=== PATIENT | male | born 1975 | race Caucasian/White ===

== ENCOUNTER 2017-04-25 20:28 | Inpatient (IN) ==
[2017-04-25 22:02] LABS: Basophils # 0.1 K/mcL (0.0-0.2); Basophils % 0.5 %; Eosinophils # 0.1 K/mcL (0.0-0.6); Eosinophils % 0.5 %; Hematocrit 44.3 % (37.5-50.1); Hemoglobin 14.8 g/dL (12.9-16.9); Immature Granulocytes % 0.5 % (0-4); Lymphocytes # 1.4 K/mcL (0.6-4.6); Lymphocytes % 10.5 %; Mean Corpuscular HGB Conc 33.4 g/dL (31.6-35.5); Mean Corpuscular Hemoglobin 30.4 pg (28.0-33.3); Mean Platelet Volume 9.2 fL (9.4-12.4); Monocytes # 0.7 K/mcL (0.0-1.3); Monocytes % 5.5 %; Neutrophils # 10.6 K/mcL (1.6-8.9); Platelet Count 206 K/mcL (140-400); Red Blood Count 4.87 M/mcL (4.19-5.50); Red Cell Distribution Width 12.9 % (11.5-14.5); Segmented Neutrophils % 82.5 %
[2017-04-25] MEDS ORDERED: Ondansetron 4 MG/2 ML VIAL IVP ONE (22:09)
[2017-04-25] MEDS ORDERED: Ketorolac 15 MG/ML VIAL IVP ONE (22:10)
[2017-04-25] MEDS ORDERED: 0.9 % Sodium Chloride 1,000 ML ONE (22:15)
[2017-04-25 22:17] LABS: Albumin 4.2 g/dL (3.5-5.7); Albumin/Globulin Ratio 1.5 (1.1-2.2); Bilirubin,Direct 0.1 mg/dL (0.0-0.2); Bilirubin,Indirect 0.3 mg/dL (0.0-1.2); Bilirubin,Total 0.4 mg/dL (0.3-1.0); Calcium 9.1 mg/dL (8.6-10.3); Globulin 2.8 g/dL (2.4-3.5)
[2017-04-25] MEDS ORDERED: *HR* HYDROcodone/Acet 5/325 mg TABLET PO ONE (22:32)
--- NOTE | 2017-04-25 22:37 | Emergency Department Note ---
Disposition Clinical Impression: Nephrolithiasis Acute renal failure Qualifiers: Acute renal failure type: unspecified Qualified Code(s): N17.9 - Acute kidney failure, unspecified Disposition: Admitted As Inpatient Condition: Good Instructions: Flank Pain (ED) Reasons to Return/Additional Instructions: admitted as inpatient. Follow up with urologist and PCP after discharge from hospital. Referrals: Gerson Arguello DO [Primary Care Provider] - Josef Redding MD [Family Provider] - Forms: ED Satisfaction Letter, Work/School Release Time of Disposition: 23:42 Abdominal Pain HPI - General Chief Complaint: ED Abdominal Pain Stated Complaint: "Right Flank Pain/Abd Pain" Time Seen by Provider: 04/25/17 21:49 Source: patient Mode of arrival: ambulatory Limitations: no limitations Nursing Notes Reviewed: Yes Vital Signs Reviewed: Yes - History of Present Illness HPI Narrative: 41 year old male presents to ED with a complaint of R flank pain, RLQ pain. He states it was sudden onset 3 hours previously after eating dinner. Describes it as sharp and aching at the same time. He has never had this before. Denies any symptoms of fevers, chills, changes to bowel movement, vomiting, dysuria but does admit to inability to urinate since onset as well as nausea. He notably states that he has been told that he only has one kidney. No exacerbating or relieving symptoms. His pain has been 10/10 and constant. Pt Subjective Complaint: abdominal pain, flank pain Onset (ago): hour(s) Consistency: constant Location: RLQ, R flank Pain Severity: severe Pain Scale: 10 Quality: aching, sharp Radiation: RLQ Worsens with: nothing Associated symptoms: Reports: nausea. Denies: vomiting, diarrhea, fever, chills , constipation, dysuria, hematuria Treatments prior to arrival: none - Related Data Allergies Allergy/AdvReac Type Severity Reaction Status Date / Time No Known Allergies Allergy Verified 04/25/17 20:58 All systems ED: reviewed and negative except as stated. Review of Systems: As Per HPI Abdominal Pain PMH - Past Medical History Medical history: Reports: hypertension, other Male Surgical History: Reports: cholecystectomy, herniorrhaphy, Tonsillectomy Psychiatric history: Reports: no psych history - Social History Smoking status: Never smoker Alcohol use: Reports: rarely Drug use: Reports: none Physical Exam - General Limitations: no limitations General appearance: alert - Head Head exam: atraumatic, normocephalic - Chest Chest inspection: Present: normal inspection, symmetric chest wall rise - Respiratory Respiratory exam: Present: normal lung sounds bilaterally - Cardiovascular Cardiovascular exam: Present: regular rate, normal rhythm, normal heart sounds - Abdominal Exam Abdominal exam: Present: soft, tenderness, diminished bowel sounds. Absent: distention, guarding, rebound, rigidity, Edwards's sign, tenderness at McBurney' s Point Abdominal tenderness: Present: RLQ, suprapubic - Back Exam Back exam: Present: tenderness, CVA tenderness (R) - Neurological Exam Neurological exam: Present: alert, oriented X3 - Psychiatric Psychiatric exam: Present: normal affect, normal mood - Skin Skin exam: Present: warm, dry, intact, normal color Course Course Narrative: 41 year old male with right flank and RLQ abdominal pain. We will obtain labs of cbc, bmp, hepatic panel, lipase, UA, as well as abdominal CT. - Reevaluation(s) Reevaluation #1: Discussed positive CT scan, 3mm ureteral stone in UVJ with field operations manager urologist, Dr. Truong. He will see him tomorrow and instructed to strain all urine. Patient reexamined and states pain much improved after norco. Time: 23:30 Vital Signs Temperature 98.0 F 04/25/17 20:39 Pulse Rate 64 04/25/17 20:39 Respiratory Rate 18 04/25/17 20:39 Blood Pressure 186/95 04/25/17 20:39 O2 Sat by Pulse Oximetry 96 04/25/17 20:39 Temperature 98.0 F 04/25/17 20:39 Pulse Rate 64 04/25/17 20:39 Respiratory Rate 18 04/25/17 20:39 Blood Pressure 186/95 04/25/17 20:39 O2 Sat by Pulse Oximetry 96 04/25/17 20:39 Oxygen Delivery Oxygen Delivery Room Air Abdominal Pain - MDM Narrative Medical decision making narrative: 41 year old male for abdominal pain with right flank involvement. CT scan positive for 3mm stone in UVJ on right with solitary kidney. Labs significant for mild WBC count as well as elevated BUN/Cr. No previous to labs to compare to. UA not obtained as patient has been unable to void. Pain controlled with [place]. Discussed case with field operations manager urologist, Dr. Truong, will see tomorrow morning. Instructed to strain all urine for stone. Discussed with hospitalist, Dr. Acosta, who agrees with admission. - Lab Data Result diagrams: 04/25/17 21:53 04/25/17 21:53 Lab Results 04/25/17 04/25/17 Range/Units 21:53 21:53 WBC 12.8 H (4.3-11.1) K/mcL RBC 4.87 (4.19-5.50) M/mcL Hgb 14.8 (12.9-16.9) g/dL Hct 44.3 (37.5-50.1) % MCV 91.0 (83.0-100.0) fL MCH 30.4 (28.0-33.3) pg MCHC 33.4 (31.6-35.5) g/dL RDW 12.9 (11.5-14.5) % Plt Count 206 (140-400) K/mcL MPV 9.2 L (9.4-12.4) fL Immature Gran % 0.5 (0-4) % Seg Neutrophils % 82.5 % Lymphocytes % 10.5 % Monocytes % 5.5 % Eosinophils % 0.5 % Basophils % 0.5 % Neutrophils # 10.6 H (1.6-8.9) K/mcL Lymphocytes # 1.4 (0.6-4.6) K/mcL Monocytes # 0.7 (0.0-1.3) K/mcL Eosinophils # 0.1 (0.0-0.6) K/mcL Basophils # 0.1 (0.0-0.2) K/mcL Sodium 139 (136-145) mEq/L Potassium 4.0 (3.5-5.1) mEq/L Chloride 109 H (98-107) mEq/L Carbon Dioxide 23 (23-29) mEq/L BUN 21 H (6-20) mg/dL Creatinine 1.91 H (0.70-1.30) mg/dL Est GFR ( Amer) 47 L (> 60) Est GFR (Non-Af Amer) 39 L (> 60) BUN/Creatinine Ratio 11 (6-26) Glucose 124 H (70-105) mg/dL Calculated Osmolality 292 (280-300) Calcium 9.1 (8.6-10.3) mg/dL Total Bilirubin 0.4 (0.3-1.0) mg/dL Direct Bilirubin 0.1 (0.0-0.2) mg/dL Indirect Bilirubin 0.3 (0.0-1.2) mg/dL AST 19 (13-39) Units/L ALT 28 (7-52) Units/L Alkaline Phosphatase 56 (34-104) Units/L Serum Total Protein 7.0 (6.4-8.9) g/dL Albumin 4.2 (3.5-5.7) g/dL Globulin 2.8 (2.4-3.5) g/dL Albumin/Globulin Ratio 1.5 (1.1-2.2) Amylase 27 L (29-103) Units/L Lipase 11 (11-82) Units/L Attestation Statement - Attestation Attestation: I examined this patient and my medical decision-making was reviewed with the Resident Physician. I agree with the documented findings, disposition and treatment plan as described except to the extent set forth below. 3 mm UVJ stone with hydroureter and hydronephrosis in patient with a solitary kidney. Creatinine 1.9, no previous studies for comparison. Essentially pain- free after treatment in ED. Discussed with Dr. Truong with urology who wants the patient with the hospitalist. Accepted by the hospitalist for admission.
[2017-04-25] MEDS ORDERED: 0.9 % Sodium Chloride 1,000 ML IVC SCH (23:30)
--- NOTE | 2017-04-26 03:53 | Internal Med History&Physical ---
Date of Encounter: 04/26/17 Time of Encounter: 03:48 Assessment and Plan (1) Hydronephrosis with urinary obstruction due to ureteral calculus Current visit: Yes Status: Acute Urology consulted Pain controlled with current regimen NPO Start Flomax Code(s): N13.2 - Hydronephrosis with renal and ureteral calculous obstruction (2) Solitary kidney Current visit: Yes Status: Acute [place] one functional kidney. Avoid nephrotoxic agents Stop Toradol Code(s): Q60.0 - Renal agenesis, unilateral (3) Acute renal failure Current visit: Yes Status: Acute Secondary to obstruction Nephrology consulted Avoid all nephrotoxic medications Acute renal failure type: unspecified Qualified Code(s): N17.9 - Acute kidney failure, unspecified (4) DILLON (obstructive sleep apnea) Current visit: No Status: Chronic Code(s): G47.33 - Obstructive sleep apnea (adult) (pediatric) Internal Medicine - H&P: HPI Chief complaint: right flank an RLQ pain Admitted From: Emergency Dept Plans for Post Hospital Care: Home History of present illness: 41 year old man presents to the ED with a complaint of 10/10 constant R flank pain and RLQ pain with no No exacerbating or relieving symptoms. His symptoms began 3 hours before coming to the ER after eating dinner. His pain is achy and sharp He denies fevers, chills, vomiting, dysuria but does admit to inability to urinate since onset as well as nausea. He has a hx of a solitary kidney. The CT scan positive for 3mm stone in UVJ on right with a solitary right kidney. He' s unable to void to check a UA at this time. Pain controlled with [place]. Dr. Talamantes called by the ER and he will see tomorrow morning. Instructed to strain all urine for stone. Past Med Surg Social Fam HX - Past Medical History Medical history: hypertension Psychiatric history: no psych history - Past Surgical History Surgical History: cholecystectomy - Social History Smoking Status: Never smoker Smokeless Tobacco Status: No Alcohol use: rarely Drug use: none - Family History Mother Living Status: Still Living Hx Family Cardiac Disorders: Yes (HTN, HLD) Hx Family Respiratory Disorders: No Hx Family Cancer: Yes (Skin) Hx Family Reproductive Disorders: Yes Father Hx Family Cardiac Disorders: Yes (HTN, HLD) Internal Medicine - H&P: Meds Loratadine [Allergy Relief] 10 mg PO DAILY 04/26/17 [History] Metoprolol [Lopressor] 25 mg PO DAILY 04/26/17 [History] 3 Allergy/AdvReac Type Severity Reaction Status Date / Time No Known Allergies Allergy Verified 04/25/17 20:58 All Systems PM: A 10-system review of systems was performed and is negative for pertinent findings except as documented above in the HPI. - Constitutional Constitutional: no anorexia, no chills, no excessive sweating, no fever(s), no falls, no lethargy, no weight gain - EENT Eyes: no blurry vision, no decreased night vision, no itchy eyes, no photophobia , no tunnel vision Ears: no tinnitus Nose, mouth and throat: no bleeding gums, no dental pain, no dysphagia, no mouth pain, no nasal congestion, no nasal discharge, no odynophagia, no sinus pain, no sore throat - Cardiovascular Cardiovascular ROS IM: no chest pain, no claudication, no diaphoresis, no irregular heart rhythm - Respiratory Respiratory: no cough, no dyspnea, no hemoptysis, no wheezing, no snoring, no stridor - Gastrointestinal Gastrointestinal: abdominal pain, no dysphagia, no hematemesis, no hematochezia , no odynophagia - Genitourinary Genitourinary ROS male: flank pain, no dysuria, no hematuria, no penile discharge - Neurological Neurological ROS: no abnormal speech, no disequilibrium, no restless legs, no vertigo - Endocrine Endocrine IM: no as per HPI, no deeping of the voice, no flushing, no polyuria - Allergic/Immunologic Allergic/Immunologic: no tongue swelling, no wheezing, no lip swelling - Constitutional Vitals: Temp Pulse Resp BP Pulse Ox 98.1 F 58 14 144/84 94 04/26/17 01:04 04/26/17 01:04 04/26/17 01:04 04/26/17 01:04 04/26/17 01:04 General appearance: Present: mild distress, A&O X 3, pleasant, answers questions appropriately - Head Head exam: Present: atraumatic, normocephalic - Eye Eye exam: Present: PERRL, conjuntiva pink, sclera anicteric Pupils: Present: PERRL - Neck Neck exam general surgery: Present: supple, trachea midline. Absent: lymphadenopathy - Respiratory Respiratory exam: Present: CTAB. Absent: accessory muscle use, rales, rhonchi, wheezes - Cardiovascular Cardiovascular exam: Present: RRR, +S1, +S2. Absent: diastolic murmur, gallop, rubs, systolic murmur - GI/Abdominal GI/Abdominal exam: Present: normal bowel sounds, soft, no peritoneal signs. Absent: distended, tenderness - exam: Absent: scrotal swelling, urethral discharge - Extremities Exam Extremities exam: Present: warm, radial pulses palpable and symmetrical. Absent : calf tenderness, cyanotic, pedal edema - Neurological Exam Neurological exam: Present: CN II-XII intact, oriented X3, no focal deficits. Absent: pronater drift, facial droop, speech deficit - Skin Skin exam: Present: dry, intact Internal Med - H&P Results - Labs CBC & Chem 7: 04/25/17 21:53 04/25/17 21:53
[2017-04-26 06:24] LABS: Basophils % 0.3 %; Eosinophils # 0.1 K/mcL (0.0-0.6); Eosinophils % 0.8 %; Hematocrit 41.3 % (37.5-50.1); Hemoglobin 13.4 g/dL (12.9-16.9); Immature Granulocytes % 0.4 % (0-4); Lymphocytes # 1.5 K/mcL (0.6-4.6); Lymphocytes % 15.1 %; Mean Corpuscular HGB Conc 32.4 g/dL (31.6-35.5); Mean Corpuscular Hemoglobin 29.8 pg (28.0-33.3); Mean Platelet Volume 9.4 fL (9.4-12.4); Monocytes # 0.8 K/mcL (0.0-1.3); Monocytes % 8.3 %; Neutrophils # 7.3 K/mcL (1.6-8.9); Platelet Count 179 K/mcL (140-400); Red Blood Count 4.49 M/mcL (4.19-5.50); Red Cell Distribution Width 13.1 % (11.5-14.5); Segmented Neutrophils % 75.1 %
[2017-04-26 07:00] LABS: Calcium 8.7 mg/dL (8.6-10.3)
[2017-04-26] MEDS ORDERED: Lidocaine -MPF 2% 2 ML VIAL ONE (07:20)
[2017-04-26] MEDS ORDERED: *HR* Propofol 200 MG/20 ML VIAL IVP ONE (07:20)
[2017-04-26] MEDS ORDERED: *HR* FentaNYL (PF) 100 MCG/2 ML VIAL ONE (07:20)
--- NOTE | 2017-04-26 07:28 | Urology - Consult Note ---
Date of Encounter: 04/26/17 Time of Encounter: 07:26 - Assessment and Plan (1) Acute renal failure Current Visit: Yes Status: Acute Assessment and plan: from obstruction in solitary kidney. now needs urgent stone extraction and stent this AM bc Cr increased from 1.9 to 3 and he is anuric. Qualifiers: Acute renal failure type: unspecified Qualified Code(s): N17.9 - Acute kidney failure, unspecified (2) Hydronephrosis with urinary obstruction due to ureteral calculus Current Visit: Yes Status: Acute Assessment and plan: stone extraction and stent this AM. pt understands urgency of situation bc no UO and Cr increased. need to proceed to prevent renal damage/failure. risk discussed including injury to solitary kidney and ureter, stent complications, reaction to dye, stricture. Urology CN:HPI Consult date: 04/26/17 Reason for consult Urology: Hydronephrosis History of present illness: pt admitted overnight with a 3 mm UVJ stone in a solitary kidney. now not making any urine. Cr increased from 1.9 to 2.97. no fever. no hx stones. Past Med Surg Social Fam HX - Past Medical History Medical history: hypertension Psychiatric history: no psych history - Past Surgical History Surgical History: cholecystectomy - Social History Smoking Status: Never smoker Smokeless Tobacco Status: No Alcohol use: rarely Drug use: none - Family History Mother Living Status: Still Living Hx Family Cardiac Disorders: Yes (HTN, HLD) Hx Family Respiratory Disorders: No Hx Family Cancer: Yes (Skin) Hx Family Reproductive Disorders: Yes Father Hx Family Cardiac Disorders: Yes (HTN, HLD) Medications and Allergies Loratadine [Allergy Relief] 10 mg PO DAILY 04/26/17 [History] Metoprolol Succinate [Toprol Xl] 25 mg PO DAILY 04/26/17 [History] 3 Allergy/AdvReac Type Severity Reaction Status Date / Time No Known Allergies Allergy Verified 04/25/17 20:58 Review of Systems - Constitutional no chills, no fever(s), no malaise - EENT Nose, mouth and throat: no dizziness - Cardiovascular no chest pain - Respiratory no cough - Gastrointestinal abdominal pain, nausea - Genitourinary flank pain - Musculoskeletal back pain - Integumentary no erythema - Neurological as per HPI, no confusion - Psychiatric no anxiety - Hematologic/Lymphatic no easy bleeding - Allergic/Immunologic no throat swelling Exam Initial Vital Signs Temp Pulse Resp BP Pulse Ox 98.0 F 64 18 186/95 96 04/25/17 20:39 04/25/17 20:39 04/25/17 20:39 04/25/17 20:39 04/25/17 20:39 - General physical appearance Present: well developed, no distress - Eyes Present: PERRL - ENT Present: normal nares - Neck Present: no masses - Respiratory Present: normal respiratory effort - Cardiovascular Cardiovascular exam IM: RRR - Abdomen Abdomen: Present: soft. Absent: masses, suprapubic tenderness - Integumentary Present: no rash. Absent: lesions, erythema - Neurologic Present: normal coordination. Absent: disoriented, confused Urology Results - Labs 04/26/17 05:11 04/26/17 05:11 Abnormal lab results Chloride 110 mEq/L (98-107) H 04/26/17 05:11 Carbon Dioxide 21 mEq/L (23-29) L 04/26/17 05:11 BUN 27 mg/dL (6-20) H 04/26/17 05:11 Creatinine 2.97 mg/dL (0.70-1.30) H 04/26/17 05:11 Est GFR ( Amer) 28 (> 60) L 04/26/17 05:11 Est GFR (Non-Af Amer) 23 (> 60) L 04/26/17 05:11 Glucose 116 mg/dL (70-105) H 04/26/17 05:11 POC Glucose 116 (58-89) H 04/26/17 05:20 Amylase 27 Units/L (29-103) L 04/25/17 21:53 All other labs normal. Consult Discharge Plan - Plan Referrals: Gerson Arguello DO [Primary Care Provider] - Josef Redding MD [Family Provider] -
--- NOTE | 2017-04-26 07:31 | Anesthesia Evaluation PreOp ---
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 History: Denies Any Significant HX Other Medical History: Renal (solitary kidney, ARF d/t kidney stone with hydronephrosis), Other (obesity) Anesthesia History: No Prior Anesthetic Complications, Past Anesthesia (zita) Alcohol Use: rarely Drug use: none Medications and Allergies Loratadine [Allergy Relief] 10 mg PO DAILY 04/26/17 [History] Metoprolol Succinate [Toprol Xl] 25 mg PO DAILY 04/26/17 [History] 3 Allergy/AdvReac Type Severity Reaction Status Date / Time No Known Allergies Allergy Verified 04/25/17 20:58 - Meds/Allergy Pre-op Review Medications Reviewed: Yes Allergies Reviewed: Yes Beta Blockers on Current Med List: No Anesthesia Results - Labs 04/26/17 05:11 04/26/17 05:11 Anesthesia Exam Selected Entries 04/26/17 05:21 Temperature 98.3 F Pulse Rate 57 Respiratory Rate 14 Blood Pressure 134/84 O2 Sat by Pulse Oximetry 94 Weight: 122kg - HEENT Pupil (Motor): EOMI Mallampati: II Teeth: Normal Oral Opening: Greater than 3 - [employer]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
[2017-04-26] MEDS ORDERED: ceFAZolin 2,000 MG in Water for inj. (sterile) 20 ML IVP ONE (08:03)
[2017-04-26] MEDS ORDERED: *HR* Promethazine 25 MG/ML VIAL IVP PRN (08:25)
[2017-04-26] MEDS ORDERED: MORPHINE SUL Oral CONC 10 MG/0.5 ML ORAL.SYG SL PRN (08:25)
[2017-04-26] MEDS ORDERED: *HR* HYDROmorphone 2 MG TABLET PO PRN (08:25)
[2017-04-26] MEDS ORDERED: Ondansetron 4 MG/2 ML VIAL ONE (08:32)
--- NOTE | 2017-04-26 08:39 | Operative Note ---
Date of procedure: 04/26/17 Pre-op diagnosis: right distal ureteral stone. solitary kidney and acute renal failure. Post-op diagnosis: same Procedure: right ureteroscopic stone extraction. right JJ stent placement Anesthesia: GETA Surgeon: Fabrice Truong Was there an health care assistant present: No Estimated blood loss (cc): 0 Specimen: stone Condition: stable Disposition: PACU Procedure in Detail: PROCEDURE IN DETAIL: Patient was taken back to the operating room, positioned supine on the operating table. Anesthesia was applied without complication. They were moved into dorsal lithotomy. Careful attention was maintained to cushion all pressure points for patient's safety. They were prepped and draped in sterile fashion. Time-out was performed with the proper patient and procedure. A 21-Nepalese rigid cystoscope was inserted into the bladder without difficulty. Systematic examination of bladder revealed no abnormalities. The ureteral orifice was cannulated using a 5-Nepalese ureteral Catheter and a zip wire was placed through the 5-Nepalese and confirmed in the renal pelvis with fluoroscopy. A semi-rigid ureteroscope was carefully inserted into the bladder and guided into the right ureteral oriface. At that point, the stone was encountered at the distal ureter and basket extracted with a 1.9 tipless basket. All stone in the ureter was removed. A 4.8 x 26 ureteral stent was placed over the zip wire under fluoroscopy without complication. The bladder was drained No string was left attached to the stent.
[2017-04-26] MEDS ORDERED: Water for inj. (sterile) 10 ML IV ONE (08:51)
[2017-04-26] MEDS ORDERED: Loratadine 10 MG TABLET PO SCH (09:00)
--- NOTE | 2017-04-26 09:04 | Anesthesia Evaluation Post Op ---
Date of Encounter: 04/26/17 Time of Encounter: 09:03 - Vital Signs Vital Signs: Vital Signs/O2 Sat, Most Current Temp Pulse Resp BP Pulse Ox 98.6 F 56 18 135/82 92 04/26/17 08:39 04/26/17 08:59 04/26/17 08:59 04/26/17 08:59 04/26/17 08:59 - Lungs Lungs: Clear Ascult./Percussion - Airway Airway: Non-obstructed - Cardiovascular Regular Rate - Mental Status Mental Status: Alert & Oriented, Answers Appropriately - Pain Pain Scale: 0 Pain Scale used: Numeric (1 - 10) - Nausea Vomiting Nausea Vomiting: Not Present - Hydration Hydration: Ice chips, Has not voided - Discharge PostOp Status: Transfer Patient to floor
[2017-04-26] MEDS ORDERED: Ondansetron 4 MG/2 ML VIAL IVP PRN (09:25)
[2017-04-26] MEDS ORDERED: *HR* OxyCODONE/APAP 5/325 TABLET PO PRN (09:25)
[2017-04-26] MEDS: Metoprolol XL (24 HR) Succ 25 MG TAB.ER.24H PO SCH (09:32)
[2017-04-26] MEDS: 0.9 % Sodium Chloride 1,000 ML IVC SCH ×2 (09:49→20:59)
[2017-04-26] MEDS ORDERED: CeFAZolin Premix DUPLEX 2,000 MG/50 ML BAG IVPB ONE (11:15)
[2017-04-26 13:59] LABS: Bilirubin,Urine Negative (Negative); Blood,Urine Large (Negative); Clarity,Urine Cloudy (Clear); Color,Urine Yellow (Yellow); Glucose,Urine (UA) Normal (Normal); Ketones,Urine Negative (Negative); Leukocyte Esterase,Urine Trace (Negative); Nitrite,Urine Negative (Negative); Protein,Urine 30 mg/dL (Neg-Trace); Specific Gravity,Urine 1.012 (1.010-1.025); Urobilinogen,Urine Normal (Normal)
[2017-04-26 14:04] LABS: Bacteria,Urine None Seen per hpf (None-Few); Hyaline Casts,Urine None Seen per lpf (None-Few); RBC,Urine TNTC per hpf (0-3); Squamous Epithelial Cell,Urine Many per lpf (None-Few)
[2017-04-26 16:39] LABS: Calcium 8.5 mg/dL (8.6-10.3); Potassium 3.7 mEq/L (3.5-5.1)
--- NOTE | 2017-04-26 17:06 | Event Note ---
Date of Encounter: 04/26/17 Time of Encounter: 09:40 41-year-old male with history of hypertension, admitted with right flank and groin colicky pain, noted to have ureteral stone. Seen and examined at bedside. Returned from OR after receiving ureteral stent. Reports no pain, fever/chills at this time. Chest- S1, S2 heard, abdomen soft and nontender, mild right CVA tenderness Acute kidney injury-likely post renal obstruction due to ureteral stone. Continue IV hydration. Status post ureteral stent placement. Continue to monitor serum creatinine closely. Avoid nephrotoxic agents. Right-sided obstructive uropathy-CT abdomen shows mild right hydronephrosis, 3 mm ureteral stone at the UV junction. Urology consulted, underwent stone extraction and right ureteral stent placement. Follow-up renal function and urine output. Patient has been almost and uric prior to stent placement. Continue pain control with when necessary oxycodone. Has received IV ciprofloxacin to prevent UTI, currently discontinued. Supportive care.
--- NOTE | 2017-04-26 17:34 | Event Note ---
Date of Encounter: 04/26/17 Time of Encounter: 17:34 Good urine output since stent placement. Creatinine has improved 2.6. Plan to observe overnight and recheck renal function in the morning. If further improvement should be able to discharge. Will need outpatient cystoscopy and stent removal
[2017-04-27 06:32] LABS: Calcium 8.7 mg/dL (8.6-10.3); Potassium 3.9 mEq/L (3.5-5.1)
--- NOTE | 2017-04-27 06:53 | Event Note ---
Date of Encounter: 04/27/17 Time of Encounter: 06:52 Cr improved to 1.7. Okay to discharge from urology standpoint. My office will call for scheduling regarding cystoscopy and stent removal next week
[2017-04-27] MEDS: 0.9 % Sodium Chloride 1,000 ML IVC SCH (07:45)
[2017-04-27] MEDS ORDERED: Loratadine 10 MG TABLET PO SCH (09:00)
[2017-04-27] MEDS: Metoprolol XL (24 HR) Succ 25 MG TAB.ER.24H PO SCH (09:06)
[2017-04-27 10:46] VITALS: BP 142/74
--- NOTE | 2017-04-27 11:32 | Discharge Summary ---
Orders not resulted at time of discharge: Pending orders 04/26/17 08:50 Calculi (stone) Analysis Routine Surgical Pathology [PTH] Routine Pathology 04/26/17 08:50 Surgical Pathology [PTH] Routine Comment: Department: Surgical Pathology Specimen: Has been collected Specimen placed in fixative?: No DATE CINTIA:: 04/26/17 Collected At:: SURGERY PRE-OP DIAGNOSIS:: right distal ureteral stone, solitary kidney POST-OP DIAGNOSIS:: same SPECIMEN & SITE: 1: right ureteral stone Date of Encounter: 04/27/17 Time of Encounter: 11:30 - Discharge Diagnosis (1) UMA (acute kidney injury) Priority: Primary Status: Acute (2) Essential hypertension Priority: Secondary Status: Chronic (3) Hydronephrosis with urinary obstruction due to ureteral calculus Priority: Primary Status: Acute (4) DILLON (obstructive sleep apnea) Priority: Secondary Status: Chronic Hospital course: Mr. Schneider is a 41 year old male with history of hypertension, who was admitted with right-sided flank and loin to groin pain. CT abdomen/pelvis done in the emergency room showed 3 mm right ureterovesical junction stone with mild right- sided hydronephrosis and hydroureter, solitary right kidney. Patient was also noted to have acute kidney injury, likely due to postrenal obstruction, associated with severe oliguria. He was started on supportive care with IV hydration, pain control. Urology was consulted, patient underwent stone extraction and right ureteral stent placement. He is noted to have significant improvement in his symptoms, urine output and serum creatinine. He is deemed stable for discharge by urology , with outpatient follow-up for stent removal. Patient is medically stable. Discharge discussed with: patient, nurse - Time Spent with Patient Total time spent providing and/or coordinating discharge services: Greater than 30 minutes (40 min) - Discharge Medications Home Medications: Loratadine [Allergy Relief] 10 mg PO DAILY 04/26/17 [History] Metoprolol Succinate [Toprol Xl] 25 mg PO DAILY 04/26/17 [History] Allergies/Adverse Reactions: 3 Allergy/AdvReac Type Severity Reaction Status Date / Time No Known Allergies Allergy Verified 04/25/17 20:58 Date of admission: 04/26/17 05:28 Primary care physician: Gerson Arguello DO Discharging clinician: Sayda Simmons Anticipated date of discharge: 04/27/17 - Constitutional Vitals: Temp Pulse Resp BP Pulse Ox 98.2 F 62 15 142/74 94 04/27/17 10:45 04/27/17 10:45 04/27/17 10:45 04/27/17 10:45 04/27/17 10:45 General appearance: Present: A&O X 3, answers questions appropriately - Cardiovascular Cardiovascular exam: Absent: diastolic murmur, gallop, rubs, systolic murmur - Patient Status Disposition: Home, Self-Care Condition: Good Functional capacity at discharge: independent ambulation Overall status at discharge: patient is progressing back to baseline - Discharge Instructions Instructions: Acute Kidney Injury (DC), Cystoscopy (DC), Ureteral Stent Placement (DC) Follow Up With: Fabrice Truong MD [Partnered Physician] - (F/U 1 week after discharge for Ureteral stent removal. Office will call patient at home with date and time of appointment.) Additional Instructions: F/up with Urology in 2 weeks - Diet and Activity Activity: resume usual activities as tolerated Diet: low fat, low cholesterol, low salt diet
== END 2017-04-27 12:15 | disposition home or self-care (01) | DRG 669 ==
LOC: 3ANU 20:28 → EMEROO 20:28 → 3ANU 04-26 00:21
PROVIDERS: ADMIT Internal Medicine; ATTEND Internal Medicine